=== PATIENT | male | born 1990 | race Two or more races ===

== ENCOUNTER 2023-07-05 19:38 | Emergency (ER) | payer SELFPAY ==
[~2023-07-05] VITALS: Ht 170.2 cm; Wt 84.1 kg
[2023-07-05] MEDS ORDERED: KETOROLAC TROMETH 60MG/2ML VIAL IM ONE (21:30)
[2023-07-05] MEDS ORDERED: ACE3T PO (21:31)
[2023-07-05 22:01] VITALS: BP 135/83; PULSE 71; RESP 18; TEMP 98.1; O2SAT 96
== END 2023-07-05 22:02 | disposition home or self-care (01) ==
LOC: ER 19:38
DX: S82.891A Other fracture of right lower leg, initial encounter for closed fracture (principal); Z90.49 Acquired absence of other specified parts of digestive tract; W18.49XA Other slipping, tripping and stumbling without falling, initial encounter; Y93.89 Activity, other specified; Y92.89 Other specified places as the place of occurrence of the external cause; Y99.8 Other external cause status
CPT/HCPCS: 29515; 73610; 96372; 99283; J1885